=== PATIENT | male | born 1955 | race African-American/Black ===

== ENCOUNTER 2019-01-29 14:27 | Emergency (ER) | payer MEDICAID ==
[~2019-01-29] VITALS: Ht 193 cm; Wt 78.0 kg
[2019-01-29] MEDS: IBUPROFEN 600MG TABLET PO ONE (20:24)
[2019-01-29 21:42] VITALS: BP 128/69
== END 2019-01-29 21:44 | disposition home or self-care (01) ==
LOC: ER 14:27
DX: M54.2 Cervicalgia (principal); M25.512 Pain in left shoulder; M54.5 Low back pain; R07.89 Other chest pain; V43.02XA Car driver injured in collision with other type car in nontraffic accident, initial encounter; Y93.89 Activity, other specified; Y92.89 Other specified places as the place of occurrence of the external cause; Y99.8 Other external cause status
CPT/HCPCS: 71045; 72040; 72100; 73030; 99283